=== PATIENT | male | born 1950 | race Caucasian/White ===

== ENCOUNTER 2024-06-20 05:56 | Inpatient (IN) ==
--- NOTE | 2024-06-13 10:42 | Anesthesiology Consultation ---
Date of Service June 13, 2024 Assessment & Plan (1) Encounter for pre-operative examination: Chart Review Chart Review: Acceptable Risk for Surgery (pending most recent PCP office visit and previous EKG/cardiac testing if available ) and Patient NOT seen in Pre Admission Testing - Please attempt to get any previous EKGs and cardiac testing (stress and/or ECHO) from [facility] - Awaiting recent PCP office visit (spoke with PCP office 06/13/24 and office will be faxing later today) -Infectious Disease screening: Per PAT nursing assessment on 06/13/24. No known infectious disease contacts in past 10 days or current infectious disease symptoms. No recent travel outside the country. History Surgery Operation Date: 06/20/24 07:30 Proposed Procedures p Robotic Assisted Laparoscopic Radical Retropubic Prostatectomy, Possible Open, Possible Pelvic Lymph Node Dissection - David Ndiaye MD Height/Weight Height: 5 ft 6 in Weight: 84.096 kg Allergies Allergy/AdvReac Type Severity Reaction Status Date / Time No Known Allergies Allergy Verified 06/13/24 09:35 Medications Home Medications Medication Instructions Recorded Confirmed Last Taken albuterol sulfate 90 mcg/actuation 2 puff inhalation Q6H PRN 08/03/22 06/13/24 Unknown aerosol inhaler (Ventolin HFA) Shortness Of Breath doxazosin 4 mg tablet 4 mg PO HS 08/03/22 06/13/24 Unknown omeprazole 20 mg capsule,delayed 20 mg PO QAM 08/03/22 06/13/24 Unknown release rosuvastatin 10 mg tablet 10 mg PO HS 08/03/22 06/13/24 Unknown trandolapril 4 mg tablet 4 mg PO HS 04/04/24 06/13/24 Unknown fluticasone 232 mcg-salmeterol 14 1 inh inhalation BID 06/13/24 06/13/24 Unknown mcg/actuation breath activated powdr verapamil 240 mg 24 hr 240 mg PO QAM 06/13/24 06/13/24 Unknown capsule,extended release Past Medical History Medical History COPD with emphysema "mild emphysema" History of hypertension History of prostate cancer dx 05/22/24, reason for upcoming sx Hx of hyperlipidemia Kidney stone hx, sx Sleep apnea CPAP Past Family History Family History Mother Hypertension Cancer Father Hypertension Cancer Past Surgical History Surgical History History of repair of rotator cuff (2000) right History of vasectomy Hx of colonoscopy Hx of lithotripsy Hx of prostate biopsy 05/22/24 S/P cystoscopy with ureteral stent placement w/ stone basketing Social History Smoking Status: Former smoker Do You Dip or Chew Tobacco: No Smoking End Date: 27 years ago Hx Alcohol Use: No Hx Substance Use: No substance use type: does not use Lab Results Anesthesia Preop Results Results Anesthesia Widget: WBC 7.14 K/ul (4.8-10.8) 06/09/24 Hgb 14.9 g/dl (14.0-18.0) 06/09/24 Hct 42.6 % (42.0-52.0) 06/09/24 Plt 293 K/uL (130-400) 06/09/24 Na 139 mmol/L (136-145) 06/09/24 K 3.9 mmol/L (3.5-5.1) 06/09/24 Cl 104 mmol/L (98-107) 06/09/24 CO2 26 mmol/L (21-32) 06/09/24 BUN 13 mg/dl (6-23) 06/09/24 Creat 1.14 mg/dl (0.6-1.4) 06/09/24 Glucose Level 141 mg/dl (70-99(Fasting)) H 06/09/24 Testing Laboratory Results 06/09/24= URINE CULTURE: Three types of organisms present, all low counts probable skin chase Electrocardiogram Date: 06/09/24 Findings: + NSR @ (83bpm) Left axis deviation Inferior infarct, age undetermined Chest X-Ray Date: 06/09/24 Findings: + NAD FINDINGS: There is a rounded density at the lower central chest which likely represents small hiatal hernia. Heart size and pulmonary vasculature are normal. No effusion or consolidation
[2024-06-20] MEDS: LACTATED RINGER'S 1,000 ML IV SCH (06:11)
[2024-06-20] MEDS: HEPARIN SOD 5,000 UNIT/0.5 ML VIAL SQ SCH ×2 (06:12→21:24)
[2024-06-20] MEDS ORDERED: ePHEDrine sulfate 50 MG/ML AMP IV PRN (07:03)
[2024-06-20] MEDS ORDERED: ATROPINE SULFATE 0.1 MG/ML 10ML SYR IV PRN (07:03)
[2024-06-20] MEDS ORDERED: fentaNYL citrate PF 100 MCG/2 ML VIAL IV PRN (07:03)
[2024-06-20] MEDS ORDERED: ONDANSETRON INJ 2 MG/ML 2 ML VIAL IV PRN (07:03)
[2024-06-20] MEDS ORDERED: ONDANSETRON INJ 2 MG/ML 2 ML VIAL ONE (07:11)
[2024-06-20] MEDS ORDERED: PROPOFOL IV EMULSION 10 MG/ML 20 ML VIAL IV ONE (07:11)
[2024-06-20] MEDS ORDERED: ROCURONIUM BROMIDE 10 MG/ML 5 ML VIAL IV ONE ×3 (07:11→10:16)
[2024-06-20] MEDS ORDERED: DEXAMETHASONE SOD INJ 4 MG/ML VIAL ONE (07:11)
[2024-06-20] MEDS ORDERED: fentaNYL citrate PF 100 MCG/2 ML VIAL ONE (07:11)
[2024-06-20] MEDS ORDERED: HYDROmorphone INJ 2 MG/ML SYR/VIAL ONE (07:11)
[2024-06-20] MEDS ORDERED: LIDOCAINE 2% 2 ML VIAL/AMP(20MG/ML) INFIL ONE (07:11)
--- NOTE | 2024-06-20 07:26 | History & Physical Bridge Note ---
Date of Service June 20, 2024 History & Physical Bridge Note I have examined the patient, reviewed the History & Physical and in the interval since the performance of the History & Physical I have noted the following changes of clinical significance: no changes noted
[2024-06-20] MEDS: ceFAZolin 2000MG 2,000 MG/15 ML SYR IV SCH ×2 (07:38→15:11)
[2024-06-20] MEDS: SURGICEL ABSORB HEMOSTAT 2IN X 14IN TOP ONE (08:30)
[2024-06-20] MEDS: BUPIVACAINE 0.5 % 5 MG/1 ML MPF 30ML VIAL ONE (10:10)
[2024-06-20] MEDS: BUPIVACAINE LIPOSOME 1.3% 266 MG/20 ML VIAL ONE (10:10)
[2024-06-20] MEDS ORDERED: ACETAMINOPHEN 1000 MG/100 ML IV IV ONE (10:12)
[2024-06-20] MEDS ORDERED: SUGAMMADEX SODIUM 200 MG/2 ML VIAL IV ONE (10:23)
--- NOTE | 2024-06-20 10:29 | Operative Report ---
[facility] Post Operative Report Pre & Post Diagnosis Operation Date: 06/20/24 07:30 Pre-Op Diagnosis: Malignant Neoplasm of Prostate Post-Op Diagnosis: Malignant Neoplasm of Prostate I identified the patient and participated in the time-out.: Yes Procedure Operation Date: 06/20/24 07:30 Actual Procedures p Robotic Assisted Laparoscopic Radical Retropubic Prostatectomy, Bilateral Pelvic Lymph Node Dissection(Not Applicable) - David Ndiaye MD Surgeon David Ndiaye MD Case Packer Radha Bradley Estimated Blood Loss 25 Findings Consistent with Post-Op Diagnosis Specimens 1. Periprostatic fat 2. Prostate and seminal vesicles 3. Left pelvic lymph nodes 4. Right pelvic lymph nodes Description of Procedure The patient was identified in the preoperative holding area, appropriate informed consents were reviewed and completed, and he was transported to the operating suite. Subcutaneous heparin was administered in the pre-operative holding area. Upon arrival in the operating suite, he received appropriate antibiotics and general anesthesia. He was positioned in dorsal lithotomy, a B&O suppository was inserted after digital rectal exam, and he was prepped and draped in standard fashion. A Larios catheter was inserted in the sterile field. A Veress needle was passed per umbilicus with uniform insufflation of the abdomen to 15mmHg. He was placed in steep Trendelenburg position. A periumbilical incision was then made to accommodate a 12mm Visiport with 10mm 0degree laparoscope. Inspection of the abdomen was carried out, and there was no evidence of traumatic entry or injury secondary to the Veress needle. After confirming a clear anterior abdominal wall, ports were subsequently placed in standard robotic prostatectomy fashion without incident. To begin the robotic portion of the case, the left lateral aspect of the sigmoid was mobilized off of the left pelvic side wall to allow the pouch of Gabriel to be appropriately visualized. I then made an incision in the pouch of Gabriel, overlying the seminal vesicles. Both SVs as well as the ampullae of the vasa were entirely dissected, with the vasa transected 3cm from the prostate. The medial umbilical ligaments were then controlled with bipolar electrocautery just inferior to the umbilicus. Following cauterization, they were divided utilizing monopolar cautery. A peritoneal incision was carried from this location to the medial aspect of the internal inguinal rings bilaterally with care to avoid opening through the ring. This incision was concluded when the vas deferens was reached. Dissection of the bladder and prostate off of the posterior aspect of the pubic arch was completed allowing full visualization of the prostate. The fat overlying the prostate was removed en bloc and passed off the table as a specimen labeled "periprostatic fat". The endopelvic fascia was cleared during this portion of the procedure, and subsequently opened - first on the right and then the left. The incision through the endopelvic fascia began near the prostate-bladder junction and was carried to the apex with extreme care to preserve all lateral levator musculature as well as the periurethral musculature and sphincter complex. I additionally preserved the puboprostatic ligaments. I then controlled the DVC with a 3-0 V-lock suture in overlapping/figure of 8 fashion. The lymph node dissection was then conducted. External iliac vessels were identified on the pelvic side wall. The packet of fat and lymphatic tissue that resides just under the iliac vein was elevated and off of the vein with a split and roll technique. The packet was dissected laterally to the circumflex vein and distally to the obturator nerve which was preserved. The proximal aspect of the packet was carried towards the bifurcation of the iliac vessels. A combination of monopolar and bipolar cautery were used to assist with control. After completing the dissection on both sides, the packets were collected and passed off of the table as specimens labeled "pelvic lymph nodes". My attention then returned to the prostate, with identification of the bladder neck aided by gentle traction on the Larios catheter and lateral to medial pressure at the presumed level of the bladder neck with the robotic instruments. An anterior cystotomy was made, the Larios balloon deflated and the catheter guided through the incision to allow anterior retraction. I attempted to preserve maximal bladder neck musculature as I circumferentially dissected around the bladder neck. After incision through the posterior aspect of the mucosa, the dissection was carried through detrusor muscle until the bilateral ampullae of the vasa were identified. The previously dissected vasa and SVs were brought through the incision and used to elevated the prostate anteriorly. A posterior plane behind the prostate was then developed - splitting [place] rs's fascia. This dissection was carried as far as possible towards the apex as well as far as possible laterally. An incision in the lateral prostatic fascia was then made bilaterally to facilitate control of the vascular pedicles and preservation of the nerve bundles. Vasculature running along the posterior/lateral aspect of the prostate was preserved as well as the tissue containing the nerves. Slightly more cautious approach to the right side was taken versus the left side given the pathology. The pedicles were then controlled with a series of Weck clips. The apical attachments of the prostate were remaining at that stage. The DVC was divided after control with bipolar cautery over the prostate. Continuous inspection from anterior and lateral views allowed me to closely follow the apical contour of the prostate and maximally preserve urethral length and tissue. The prostate was entirely freed at that point, and collected in an EndoCatch bag before being moved out of the field of vision. Hemostasis was confirmed and anastomosis of the bladder and urethra was completed utilizing a double armed V- Lock stitch. A new Larios catheter was inserted and the anastomosis tested with irrigation. There was no evidence of leak. A michelle style stitch was placed bilaterally to functionally marsupialize the area of the lymph node dissection. The robot was undocked, the specimen extracted through expansion of the christos- umbilical camera port. The fascia was closed with a series of 0-PDS figure of 8 stitches. The right portfolio assistant port was closed in two layers - with a figure of 8 0-Vicryl to reapproximate the fascia followed by 4-0 Monocryl to close the skin. Monocryl was used to close all other skin incisions. All wounds were dressed with Dermabond. The case was concluded and the patient taken to the PACU in stable condition. I attest to the content of the Intraoperative Record and any orders documented therein. Any exceptions are noted below.
[2024-06-20 11:10] LABS: Basophils # (auto) 0.02 K/uL (0.00-0.20); Basophils % (auto) 0.3 %; Eosinophils # (auto) 0.01 K/uL (0.00-0.50); Eosinophils % (auto) 0.1 %; Hematocrit (blood only) 37.5 % (42.0-52.0); Hemoglobin 12.7 g/dl (14.0-18.0); Immature Granulocytes # (auto) 0.13 K/uL (0.01-0.20); Immature Granulocytes % (auto) 1.8 %; Lymphocytes # (auto) 0.97 K/uL (1.20-3.40); Lymphocytes % (auto) 13.1 %; Mean Corpuscular Hemoglobin 30.5 pg (25.0-34.0); Mean Corpuscular Hgb Conc 33.9 g/dL (32.0-36.0); Mean Corpuscular Volume 90.1 fL (80.0-100.0); Mean Platelet Volume 9.8 fL (9.4-12.4); Monocytes # (auto) 0.19 K/uL (0.11-0.59); Monocytes % (auto) 2.6 %; Neutrophils # (auto) 6.07 K/uL (1.40-6.50); Neutrophils % (auto) 82.1 %; Platelet Count 227 K/uL (130-400); RDW Coefficient of Variation 11.9 % (11.5-14.5); RDW Standard Deviation 38.8 fL (36.4-46.3); Red Blood Count 4.16 M/uL (4.70-6.10); White Blood Count 7.39 K/ul (4.8-10.8)
[2024-06-20 11:20] LABS: BUN Creatinine Ratio 13.8 (10-20); Calcium 8.5 mg/dl (8.6-10.3); Potassium 4.3 mmol/L (3.5-5.1)
--- NOTE | 2024-06-20 12:09 | Anesthesiology Progress Note ---
Date of Service June 20, 2024 Anesthesia Post Procedure Vital Signs Vital Signs: Temp Pulse Pulse Resp BP BP BP 06/20/24 12:00 89 15 114/71 06/20/24 11:45 94 H 13 118/75 06/20/24 11:30 93 H 14 105/75 06/20/24 11:15 92 H 14 116/71 06/20/24 11:05 98.4 F 89 15 114/77 06/20/24 10:55 90 13 116/77 06/20/24 10:45 89 14 117/79 06/20/24 10:35 98.2 F 98 H 18 117/59 L 06/20/24 06:07 97.5 F L 92 H 18 162/91 H Pulse Ox O2 Del Method O2 Flow Rate 06/20/24 12:00 95 Nasal Cannula 2 06/20/24 11:45 96 Nasal Cannula 2 06/20/24 11:30 96 Nasal Cannula 2 06/20/24 11:15 95 Nasal Cannula 2 06/20/24 11:05 94 Nasal Cannula 2 06/20/24 10:55 95 Oxymask 2 06/20/24 10:45 97 Oxymask 10 06/20/24 10:35 98 Oxymask 10 06/20/24 06:07 97 Room Air Transfer of Care Handoff Completed per policy Notes Mental Status: alert / awake / arousable and participated in evaluation Patient Amnestic to Procedure: Yes Nausea / Vomiting: adequately controlled Pain: adequately controlled Airway Patency, RR, SpO2: stable & adequate BP & HR: stable & adequate Hydration State: stable & adequate Anesthetic Complications: no major complications apparent and Pt Satisfied with anesthetic care
[2024-06-20] MEDS ORDERED: traMADol HCL 50 MG TABLET PO PRN ×2 (12:32)
[2024-06-20] MEDS ORDERED: ALBUTEROL HFA 8 GM INHALER INH PRN (12:32)
[2024-06-20] MEDS ORDERED: MoRPHine SULFATE 2 MG/ML CARP IV PRN (12:32)
[2024-06-20] MEDS: MoRPHine SULFATE 2 MG/ML CARP IV PRN (13:27)
[2024-06-20] MEDS: ONDANSETRON INJ 2 MG/ML 2 ML VIAL IV PRN (13:27)
[2024-06-20] MEDS: SODIUM CHLORIDE 0.9% 1,000 ML IV SCH (13:32)
[2024-06-20] MEDS: KETOROLAC TROMETHAMINE 15 MG/ML VIAL IV PRN (14:57)
[2024-06-20] MEDS: ACETAMINOPHEN 325 MG TAB PO SCH (16:03)
[2024-06-20] MEDS: DOXAZosin MESYLATE 4 MG TAB PO SCH (19:30)
[2024-06-20] MEDS: ROSUVASTATIN CALCIUM 10 MG TAB PO SCH (19:30)
[2024-06-20] MEDS: lisinopril 40 MG TAB PO SCH (19:30)
[2024-06-20] MEDS: FLUTICASONE/VILANTEROL 200/25MCG 14 PUFFS/INHALER INH SCH (19:35)
[2024-06-20] MEDS: DOCUSATE SODIUM 100 MG CAP PO SCH (21:24)
[2024-06-21 07:13] VITALS: BP 135/85; PULSE 83; RESP 16; TEMP 97.5; O2SAT 94
[2024-06-21] MEDS: VERAPAMIL HCL 240 MG TABCR PO SCH (07:52)
[2024-06-21] MEDS: PANTOprazole 40 MG TAB PO SCH (07:52)
--- NOTE | 2024-06-21 08:02 | Urology Progress Note ---
Date of Service June 21, 2024 Assessment & Plan (1) Prostate cancer: Plan: Postop day #1 status post prostatectomy Doing really well Plan for discharge home later today advance diet Admission and Anticipated Discharge Date Admission Date: June 20, 2024 Subjective 73-year-old doing extremely well after his prostatectomy Ambulatory Pain well-controlled Ready for diet Physical Exam Physical Exam: Incisions appropriate, urine clear Results & Data Vital Signs (Past 12 Hours) Vital Signs Temp Pulse Resp BP BP Pulse Ox O2 Del Method 06/21/24 07:11 36.4 C L 83 16 135/85 94 Room Air 06/21/24 04:00 36.6 C 80 20 132/80 95 Room Air 06/20/24 22:20 36.7 C 94 H 20 104/69 93 Room Air PG Care Time/CCT Total # of Minutes Spent Total Time Spent with Patient: Total time spent is greater than 50% in coordination of care (as documented) at patient's floor/unit and/or counseling patient: Coding Level of Care Code None Diagnoses Prostate cancer C61
[2024-06-21 08:28] LABS: Basophils # (auto) 0.01 K/uL (0.00-0.20); Basophils % (auto) 0.1 %; Eosinophils # (auto) 0.01 K/uL (0.00-0.50); Eosinophils % (auto) 0.1 %; Hematocrit (blood only) 36.3 % (42.0-52.0); Hemoglobin 12.3 g/dl (14.0-18.0); Immature Granulocytes # (auto) 0.04 K/uL (0.01-0.20); Immature Granulocytes % (auto) 0.4 %; Lymphocytes # (auto) 1.03 K/uL (1.20-3.40); Mean Corpuscular Hemoglobin 31.1 pg (25.0-34.0); Mean Corpuscular Hgb Conc 33.9 g/dL (32.0-36.0); Mean Corpuscular Volume 91.7 fL (80.0-100.0); Monocytes # (auto) 0.84 K/uL (0.11-0.59); Monocytes % (auto) 8.1 %; Neutrophils # (auto) 8.42 K/uL (1.40-6.50); Neutrophils % (auto) 81.3 %; Platelet Count 239 K/uL (130-400); RDW Coefficient of Variation 11.9 % (11.5-14.5); RDW Standard Deviation 39.8 fL (36.4-46.3); Red Blood Count 3.96 M/uL (4.70-6.10); White Blood Count 10.35 K/ul (4.8-10.8)
[2024-06-21 08:42] LABS: BUN Creatinine Ratio 13.1 (10-20); Calcium 8.3 mg/dl (8.6-10.3); Creatinine Clr Calc Pharmacy 64.8 ml/min; Potassium 4.5 mmol/L (3.5-5.1)
--- NOTE | 2024-06-21 10:37 | Discharge Summary ---
Date of Service June 21, 2024 Admission HPI Per Admitting Provider Patient with prostate cancer here for robotic prostatectomy. Principal Diagnosis prostate cancer Discharge Exam Constitutional well developed and well nourished; no acute distress Respiratory normal respiratory effort; no respiratory distress and no labored breathing Gastrointestinal (Abdomen) Inspection/Auscultation: abdomen normal to inspection Musculoskeletal Head/Neck/Chest: normocephalic Neurologic moves all extremities and awake Psychiatric Orientation: alert and oriented x 3 Discharge Data Allergies Allergy/AdvReac Type Severity Reaction Status Date / Time No Known Allergies Allergy Verified 06/13/24 09:35 Procedures Performed Operation Date: 06/20/24 07:30 Actual Procedures p Robotic Assisted Laparoscopic Radical Retropubic Prostatectomy, Bilateral Pelvic Lymph Node Dissection(Not Applicable) - David Ndiaye MD Hospital Course (1) Prostate cancer: Postop day #1 status post prostatectomy Doing really well Plan for discharge home later today advance diet Patient tolerating regular diet, ambulating and ready to go homedischarge orders placed Follow-up appointments in place, all questions answered Total Time Total Time Spent Total Time Spent (In Minutes): 20 Discharge Plan Discharge Items Patient Disposition: Home - Self-Care Reason For Visit: Malignant Neoplasm of Prostate Discharge Diagnosis: Malignant neoplasm of prostate Activity: Per Instructions section Lifting: No more than 10 pounds Bathing Comment: Okay to shower to discharge, no tub bath or soaking Sexual Activity: Wait until after follow-up appointment Exercise/Sports: Wait until after follow-up appointment Driving/Machine Use: No driving while taking prescription pain medication Non-emergency contact: Surgeon and Urologist Call non-emergency contact if: your pain is not controlled, your pain is concerning for you, you have a fever, your temperature is above 101, your wound has increased redness, your wound has increased drainage and your wound pain has increased Follow-up/Referrals: David Ndiaye MD [Physician] - 07/07/24 8:45 am () Yanci Sawant MD [Primary Care Provider] - [facility],Nurse [FAKE FOR SCHEDULES] - 06/26/24 11:00 am Diet: Regular Addtl Attending Provider Instructions: Please take all medications as prescribed and keep all follow-ups as scheduled. Please call our office at [phone] with any questions, concerns or need to reschedule appointments for any reason. We are happy to assist you. We have sent an antibiotic to your pharmacy of choice. Please begin antibiotic as prescribed the day BEFORE your scheduled voiding trial at [facility]. Please continue antibiotic every 12 hours through the day AFTER your voiding trial. Activity: We recommend having someone with you for the first few days after surgery to help care for you. For the first 2 weeks after surgery, we would like you to get up and walk around your house. However, we recommend limit physical activity that would increase your heart rate. This will allow your body to rest and heal. Take naps if you feel tired. Don't lift anything heavier than 10 pounds, mow the law or ride a bicycle until your follow-up appointment. Please avoid long car rides. Home Care: Unless directed otherwise, drink 6 to 8 glasses of water a day (enough to keep your urine light colored). This will also help keep a healthy flow of urine. We recommend using a stool softener for the first two weeks to avoid constipation. Larios Catheter or Suprapubic Catheter care: Keep the catheter well secured with either a leg back or leg strap with large bag. Empty your bag when it's about half full. You may notice some blood in the ba g. This is normal after surgery and while the catheter is in place. Use mild soap (such as Dove or Dial) and water to wash the catheter and the head of your penis daily, or more frequently if needed. Return to your normal diet, we encourage good protein intake to promote healing. You may shower as normal. Please avoid tub baths or soaking until catheter removed and incisions well healed. Wearing sweat pants while you have the catheter is recommended, they will be more comfortable. Follow-up Your follow up appointments for having your catheter removed, and follow up with your physician should already be scheduled. If you have any questions regarding this, please contact our office. Your final pathology report will be discussed at your physician follow-up appointment. Call [facility] at [phone] right away if you have any of the following: Chest pain or trouble breathing (call 911 or go to the hospital) Fever of 101F or higher, uncontrolled vomiting Heavy bleeding, clots, or bright red blood from the catheter Catheter that falls out or stops draining Foul-smelling discharge from your catheter Redness, swelling, warmth, or increased pain at your incision site Drainage, pus, or bleeding from your incision Pending Studies at Discharge: Yes Stand-Alone Forms: My [facility], Smoking Cessation Medications and DC Order Prescriptions: New ciprofloxacin HCl 500 mg tablet 500 mg PO BID Qty: 6 0RF Rx Instructions: start 1 day prior to catheter removal tramadol 50 mg tablet 50 mg PO BID PRN (Reason: pain) Qty: 6 0RF ondansetron 4 mg tablet,disintegrating 4 mg PO BID PRN (Reason: nausea and vomiting) Qty: 6 0RF Continued rosuvastatin 10 mg tablet 10 mg PO HS omeprazole 20 mg capsule,delayed release(DR/EC) 20 mg PO QAM doxazosin 4 mg tablet 4 mg PO HS albuterol sulfate [Ventolin HFA] 90 mcg/actuation HFA aerosol inhaler 2 puff inhalation Q6H PRN (Reason: Shortness Of Breath) trandolapril 4 mg tablet 4 mg PO HS verapamil 240 mg capsule,ext rel. pellets 24 hr 240 mg PO QAM fluticasone propion-salmeterol 232-14 mcg/actuation aerosol powdr breath activated 1 inh INHALATION BID Discharge Orders: Discharge Order (Routine); Ordered 06/21/24 Ordered By: Radha Bradley Admission Data Admit Date/Time: 06/20/24 10:26 Attending Provider: David Ndiaye Admit Provider: David Ndiaye Primary Care Provider: Yanci Sawant Coding Level of Care Code 82290 IN/OBS DISCH 30 MIN/LESS Diagnoses Prostate cancer C61
== END 2024-06-21 12:33 | disposition home or self-care (01) | DRG 708 ==
LOC: ASU 05:56 → 3N 10:26